=== PATIENT | male | born 1965 | race Caucasian/White ===

== ENCOUNTER 2016-10-02 00:50 | Emergency (ER) | payer MEDICAID ==
[~2016-10-02] VITALS: Ht 172.7 cm; Wt 105.0 kg
[~2016-10-02 00:50] MED LIST: BACT800T5 PO; CEPH500C3 PO; NEBI20 PO
[2016-10-02 00:51] VITALS: BP 192/129; PULSE 90; RESP 16; TEMP 98.3; O2SAT 96
[2016-10-02] MEDS ORDERED: NEBI20 PO (00:58)
[2016-10-02] MEDS ORDERED: OMEP20TA PO (00:58)
[2016-10-02] MEDS ORDERED: NAPR250T PO (00:58)
[2016-10-02] MEDS ORDERED: ORPHENADRINE INJ 60 MG/2 ML AMP IM ONE (02:45)
[2016-10-02] MEDS ORDERED: DEXAMETHASONE SOD PHOS 20 MG/5 ML VIAL IM ONE (02:45)
[2016-10-02] MEDS ORDERED: cloNIDine HCL 0.1 MG TAB PO ONE (02:45)
[2016-10-02] MEDS ORDERED: KETOROLAC TROMETHAMINE 60 MG/2 ML (IM) VIAL IM ONE (02:45)
[2016-10-02] MEDS ORDERED: MELO-1 PO (03:24)
[2016-10-02] MEDS ORDERED: AMLO10TA2 PO (03:24)
--- NOTE | 2016-10-02 03:24 | PD ---
HPI Chief Complaint: Musculoskeletal Complaint Time Seen by Provider: 02:00 Travel History International Travel<30 days: No Contact w/Intl Traveler<30days: No Traveled to known affect area: No History of Present Illness HPI Patient's 51-year-old male presenting to the emergency reevaluation of right knee pain. Patient states pain is been ongoing for 2 days, is keeping him up at night. He denies any injury or trauma but states his left knee pain and because he's been walking differently is aggravating the right leg. He reports his pain is a 7 out of 10 and describes it as aching and throbbing. Patient also reports a history of hypertension, he states he has been out of his medication for several months. He denies any other complaints at this time. 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 Resting comfortably in no acute distress. SKIN: Warm and dry. HEAD: Normocephalic. EYES: No scleral icterus. No injection or drainage. NECK: Supple, trachea midline. No JVD or lymphadenopathy. CARDIOVASCULAR: Regular rate and rhythm without murmurs, gallops, or rubs. RESPIRATORY: Breath sounds equal bilaterally. No accessory muscle use. GASTROINTESTINAL: Abdomen soft, non-tender, nondistended. MUSCULOSKELETAL: No cyanosis, or edema. No obvious deformities. Positive pedal pulses, brisk with 3 second capillary refill. Full range of motion in right knee. No tenderness to palpation. BACK: Nontender without obvious deformity. No CVA tenderness. Data Data Last Documented VS Vital Signs Date Time Temp Pulse Resp B/P Pulse Ox O2 Delivery O2 Flow Rate FiO2 10/02/16 04:14 71 158/87 10/02/16 00:51 98.3 16 96 Room Air Orders Ketorolac Inj (Toradol Inj) (10/02/16 02:45) Orphenadrine Inj (Norflex Inj) (10/02/16 02:45) Dexamethasone Inj (Decadron Inj) (10/02/16 02:45) Clonidine (Catapres) (10/02/16 02:45) Iv Access Insert/Monitor (10/02/16 03:35) Hydralazine Inj (Apresoline Inj) (10/02/16 03:45) Basic Metabolic Panel (Bmp) (10/02/16 03:36) Labs Laboratory Tests Test 10/02/16 03:42 Sodium Level 140 MEQ/L Potassium Level 4.2 MEQ/L Chloride Level 105 MEQ/L Carbon Dioxide Level 26.1 MEQ/L Anion Gap 9 MEQ/L Blood Urea Nitrogen 18 MG/DL Creatinine 0.87 MG/DL Estimat Glomerular Filtration 92 ML/MIN Rate Random Glucose 129 MG/DL Calcium Level 8.5 MG/DL MDM Medical Decision Making Medical Screen Exam Complete: Yes Emergency Medical Condition: Yes Interpretation(s) Vital Signs Date Time Temp Pulse Resp B/P Pulse Ox O2 Delivery O2 Flow Rate FiO2 10/02/16 00:51 98.3 90 16 192/129 96 Room Air Differential Diagnosis Strain versus sprain versus arthritis versus hypertension versus other Narrative Course Patient is a 51-year-old male presenting with right knee pain, he has no preceding injury or trauma. Patient is neurovascularly intact. He'll be given medications to attempt to alleviate pain in the emergency department however he was advised that he will need to see a primary care provider [facility] of his chronic condition regarding the left knee. Additionally patient is out of his blood pressure medication, he was given a dose of clonidine in the emergency department due an emergent elevated blood pressure. Patient is no cardiac complaints. CT was reassessed after administration of clonidine. Blood pressure was higher. IV access was initiated. Patient was given IV hydralazine and a BMP was obtained to assess renal function. BMP is unremarkable, patient's blood pressure has normalized. Patient will be given prescriptions for amlodipine and lisinopril. He was advised to follow-up at the [place] [facility] or at the [facility] for ongoing evaluation and management of chronic health conditions. He was advised to return to emergency department for any new or worsening symptoms. Patient verbalizes understanding of instructions. Patient stable for discharge. Diagnosis Primary Impression: Knee pain Qualified Code: M25.561 - Right knee pain, unspecified chronicity Additional Impression: Hypertension Qualified Code: I10 - Essential hypertension Referrals: [facility] Primary Care Physician Patient Instructions: Arthritis (GEN), General Instructions, Hypertension (ED) , Knee Pain (ED) Additional Instructions: Follow-up at the [place] [facility] or with a primary doctor or at the [facility] Return to emergency department for any new or worsening symptoms Apply warm moist heat to affected area, continue range of motion exercises, avoid exacerbating activities Take medications as directed Med/Other Pt SpecificInfo: Prescription(s) given Scripts Lisinopril 10 Mg Tab10 Mg PO DAILY #30 TAB Ref 0 Prov:Ignacia Collazo 10/02/16 Amlodipine 10 Mg Tab10 Mg PO DAILY #30 TAB Ref 0 Prov:Ignacia Collazo 10/02/16 Meloxicam 15 Mg Tab15 Mg PO DAILY PRN (PAIN SCALE 1 TO 10) #30 TAB Ref 0 Prov:Ignacia Collazo 10/02/16 Disposition: 01 DISCHARGE HOME Condition: Stable Ignacia Collazo Oct 02, 2016 03:24
[2016-10-02 03:34] VITALS: BP 204/125; PULSE 96
[2016-10-02] MEDS ORDERED: hydrALAZINE HCL 20 MG/ML VIAL IV PUSH ONE (03:45)
[2016-10-02 03:51] VITALS: BP 186/97; PULSE 71
[2016-10-02 04:14] VITALS: BP 158/87; PULSE 71
[2016-10-02 04:15] LABS: BICARBONATE 26.1 MEQ/L (21.0-32.0)
[2016-10-02 04:16] LABS: POTASSIUM 4.2 MEQ/L (3.5-5.1)
[2016-10-02] MEDS ORDERED: LISI10TA3 PO (04:21)
== END 2016-10-02 04:35 | disposition home or self-care (01) ==
LOC: NEPD 00:50
DX: M25.561 Pain in right knee (principal); I10 Essential (primary) hypertension
CPT/HCPCS: 80048; 96372; 96374; 99284; J0360; J1100; J1885; J2360